=== PATIENT | male | born 1970 | race Caucasian/White ===

== ENCOUNTER 2022-07-29 07:34 | Day surgery (SDC) | payer BC ==
[~2022-07-29 07:34] MED LIST: Lactated Ringers 1,000 ML IV SCH; Propofol 200 MG/20 ML SDV ONE; Sodium Chloride 0.9% 10 ML Syringe FLUSH PRN; Sodium Chloride 0.9% 2.5 ML Syringe FLUSH PRN; Sodium Chloride 0.9% 20 ML SDV IV PRN
[2022-07-29] MEDS ORDERED: Propofol 200 MG/20 ML SDV ONE (09:17)
== END 2022-07-29 10:00 | disposition home or self-care (01) ==
LOC: MW.SDS 07:34
PROVIDERS: ATTEND Surgery
DX: Z12.11 Encounter for screening for malignant neoplasm of colon (principal); D12.2 Benign neoplasm of ascending colon; K57.30 Diverticulosis of large intestine without perforation or abscess without bleeding; J45.909 Unspecified asthma, uncomplicated; F32.A Depression, unspecified; E78.5 Hyperlipidemia, unspecified; I10 Essential (primary) hypertension; G47.33 Obstructive sleep apnea (adult) (pediatric); E66.9 Obesity, unspecified; Z87.891 Personal history of nicotine dependence; Z98.890 Other specified postprocedural states; Z86.010 Personal history of colon polyps; Z79.899 Other long term (current) drug therapy; Z88.8 Allergy status to other drugs, medicaments and biological substances
CPT/HCPCS: 45380; 45385; J2704; J7120; 00812

== ENCOUNTER 2022-09-03 06:14 | Day surgery (SDC) | payer BC ==
[~2022-09-03 06:14] MED LIST changes: -Lactated Ringers 1,000 ML IV SCH; +Pregabalin 75 MG Cap PO ONE; -Propofol 200 MG/20 ML SDV ONE; -Sodium Chloride 0.9% 10 ML Syringe FLUSH PRN; -Sodium Chloride 0.9% 2.5 ML Syringe FLUSH PRN; -Sodium Chloride 0.9% 20 ML SDV IV PRN
[2022-09-03] MEDS ORDERED: Lactated Ringers 1,000 ML IV SCH (06:15)
[2022-09-03] MEDS ORDERED: Bupivacaine 0.5% 30 ML SDV ONE (07:16)
[2022-09-03] MEDS ORDERED: Famotidine 20 MG/2 ML SDV ONE (07:18)
[2022-09-03] MEDS ORDERED: Ondansetron 4 MG/2 ML SDV IVPUSH PRN (07:19)
[2022-09-03] MEDS ORDERED: fentaNYL 50 MCG/ML SDV IVPUSH PRN (07:19)
[2022-09-03] MEDS ORDERED: Albuterol 0.083% 2.5 MG/3 ML Neb Soln NEB PRN (07:19)
[2022-09-03] MEDS ORDERED: Morphine 2 MG/ML SYRINGE IVPUSH PRN (07:19)
[2022-09-03] MEDS ORDERED: Naloxone 0.4 MG/ML SDV IVPUSH PRN (07:19)
[2022-09-03] MEDS ORDERED: HYDROmorphone 1 MG/ML Syringe IVPUSH PRN (07:19)
[2022-09-03] MEDS ORDERED: Metoclopramide 10 MG/2 ML SDV IVPUSH PRN (07:19)
[2022-09-03] MEDS ORDERED: Propofol 200 MG/20 ML SDV ONE (07:26)
[2022-09-03] MEDS ORDERED: fentaNYL 250 MCG/5 ML SDV ONE (07:26)
[2022-09-03] MEDS ORDERED: fentaNYL 100 MCG/2 ML SDV ONE (10:06)
[2022-09-03] MEDS ORDERED: Ondansetron 4 MG/2 ML SDV ONE (10:07)
[2022-09-03] MEDS ORDERED: ceFAZolin 2 GM Vial ONE (10:07)
[2022-09-03] MEDS ORDERED: Rocuronium Bromide 50 MG/5 ML Syringe ONE (10:07)
[2022-09-03] MEDS ORDERED: ePHEDrine 50 MG/ML SDV ONE (10:07)
[2022-09-03] MEDS ORDERED: Dexamethasone 4 MG/ML 5 ML MDV ONE (10:07)
[2022-09-03] MEDS ORDERED: Sugammadex Sodium 200 MG/2 ML VIAL ONE (10:07)
[2022-09-03] MEDS ORDERED: Ketorolac 30 MG/ML SDV ONE (10:07)
[2022-09-03] MEDS ORDERED: Succinylcholine/Sod PF 100 MG/5 ML SYRINGE IV ONE (10:07)
[2022-09-03] MEDS ORDERED: HYDROmorphone 2 MG/ML Syringe ONE (10:26)
[2022-09-03] MEDS ORDERED: Ropivacaine 0.5% 5 MG/ML 30 ML SDV ONE (12:09)
== END 2022-09-03 12:30 | disposition home or self-care (01) ==
LOC: MW.SDS 06:14
PROVIDERS: ATTEND Surgery
DX: K40.91 Unilateral inguinal hernia, without obstruction or gangrene, recurrent (principal); K40.90 Unilateral inguinal hernia, without obstruction or gangrene, not specified as recurrent; D17.6 Benign lipomatous neoplasm of spermatic cord; I10 Essential (primary) hypertension; F41.9 Anxiety disorder, unspecified; F32.A Depression, unspecified; J45.909 Unspecified asthma, uncomplicated; E66.9 Obesity, unspecified; E03.9 Hypothyroidism, unspecified; G47.30 Sleep apnea, unspecified; Z88.0 Allergy status to penicillin; Z88.8 Allergy status to other drugs, medicaments and biological substances; Z98.890 Other specified postprocedural states; Z79.899 Other long term (current) drug therapy; Z68.36 Body mass index [BMI] 36.0-36.9, adult
CPT/HCPCS: 49650; 49651; A9270; C1781; J0131; J0330; J0690; J1100; J1885; J2405; J2704; J2795; J3010; J3490; J7120; J1170

== ENCOUNTER 2024-07-31 14:06 | Emergency (ER) | payer BC ==
[2024-07-31] MEDS: Lidocaine 1% 5 ML VIAL INJECT ONE (14:38)
[2024-07-31] MEDS: Diphtheria,Pertussis(Acell),Tetanus Vaccine 0.5 ML Syringe IM ONE (14:38)
[2024-07-31] MEDS: Clindamycin HCl 150 MG Cap PO STA (15:57)
== END 2024-07-31 16:06 | disposition home or self-care (01) ==
LOC: MW.ED 14:06
DX: S61.411A Laceration without foreign body of right hand, initial encounter (principal); I10 Essential (primary) hypertension; E78.00 Pure hypercholesterolemia, unspecified; E66.9 Obesity, unspecified; Z79.899 Other long term (current) drug therapy; Z88.0 Allergy status to penicillin; Z88.8 Allergy status to other drugs, medicaments and biological substances; Z75.8 Other problems related to medical facilities and other health care; Z68.36 Body mass index [BMI] 36.0-36.9, adult; Z23 Encounter for immunization; W31.2XXA Contact with powered woodworking and forming machines, initial encounter
CPT/HCPCS: 12002; 90471; 90715; 99282; A9270; 99283; J3490

== ENCOUNTER 2025-09-05 09:10 | Day surgery (SDC) | payer BC ==
[~2025-09-05 09:10] MED LIST changes: -Pregabalin 75 MG Cap PO ONE; +Sodium Chloride 0.9% 10 ML Syringe FLUSH PRN; +Sodium Chloride 0.9% 2.5 ML Syringe FLUSH PRN
[2025-09-05] MEDS: Lactated Ringers 1,000 ML IV SCH (09:35)
[2025-09-05] MEDS ORDERED: propofoL 500 MG/50 ML 50 ML ONE (10:40)
[2025-09-05] MEDS ORDERED: Ketamine HCL/NACL, ISO-OSM 50 MG/5 ML Syringe ONE (10:53)
== END 2025-09-05 12:25 | disposition home or self-care (01) ==
LOC: MW.SDS 09:10
PROVIDERS: ATTEND Surgery
DX: Z12.11 Encounter for screening for malignant neoplasm of colon (principal); D12.2 Benign neoplasm of ascending colon; D12.4 Benign neoplasm of descending colon; D12.5 Benign neoplasm of sigmoid colon; K31.7 Polyp of stomach and duodenum; K57.30 Diverticulosis of large intestine without perforation or abscess without bleeding; E78.00 Pure hypercholesterolemia, unspecified; I10 Essential (primary) hypertension; E03.9 Hypothyroidism, unspecified; E66.9 Obesity, unspecified; Z68.37 Body mass index [BMI] 37.0-37.9, adult; Z88.0 Allergy status to penicillin; Z91.09 Other allergy status, other than to drugs and biological substances; Z88.8 Allergy status to other drugs, medicaments and biological substances; Z86.0101 Personal history of adenomatous and serrated colon polyps; Z79.899 Other long term (current) drug therapy
CPT/HCPCS: 43239; 45380; 45385; J2704; J7120; 00813; J3490